=== PATIENT | male | born 2005 | race Two or more races ===

== ENCOUNTER 2025-01-26 14:50 | Emergency (ER) | payer SELFPAY ==
[~2025-01-26] VITALS: Ht 165.1 cm; Wt 86.3 kg
[2025-01-26 15:12] VITALS: TEMP 96.9
[2025-01-26] MEDS: LIDOCAINE 1% 10 ML VIAL SQ ONE (19:02)
[2025-01-26] MEDS: IBUPROFEN 600 MG TABLET PO ONE (19:03)
[2025-01-26] MEDS: BACITRACIN 0.9 GM PACKET OINTMENT TP ONE (19:03)
[2025-01-26] MEDS: POVIDONE-IODINE 10% 120 ML SOLUTION TP ONE (19:03)
[2025-01-26] MEDS: ACETAMINOPHEN 500 MG TABLET PO ONE (19:03)
[2025-01-26] MEDS: PERTUSS(ACELL),DIPH,TET/PF 0.5 ML SYRINGE [ADULT] IM. ONE (19:05)
[2025-01-26 20:55] VITALS: BP 116/67; PULSE 76; RESP 18; O2SAT 96
[2025-01-26] MEDS ORDERED: ACET-66 PO (21:16)
[2025-01-26] MEDS ORDERED: IBUP-1554 PO (21:16)
[2025-01-26] MEDS ORDERED: CEPH-558 PO (21:16)
[2025-01-26] MEDS ORDERED: BACI28.410 TP (21:16)
== END 2025-01-26 21:38 | disposition still patient (30) ==
LOC: EMS 14:50
DX: S61.213A Laceration without foreign body of left middle finger without damage to nail, initial encounter (principal); S61.215A Laceration without foreign body of left ring finger without damage to nail, initial encounter; W31.2XXA Contact with powered woodworking and forming machines, initial encounter; Y93.89 Activity, other specified; Y92.89 Other specified places as the place of occurrence of the external cause; Y99.8 Other external cause status
CPT/HCPCS: 99283; 73140; 90715; 90471; 12004; J3490